=== PATIENT | female | born 1990 ===

== ENCOUNTER 2017-01-12 15:53 | Emergency (ER) | payer BC ==
[2017-01-12 17:04] VITALS: BP 130/82
--- NOTE | 2017-01-12 17:10 | UC ---
General HPI - HPI Summary HPI Summary: . 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 Negative: Abdominal Pain, Diarrhea, Dysuria, SOB - Allergy/Home Medications Allergies/Adverse Reactions: Allergies Allergy/AdvReac Type Severity Reaction Status Date / Time No Known Allergies Allergy Verified 01/12/17 16:57 Home Medications: Home Medications Ibuprofen TAB* [Advil TAB*] 400 mg PO Q6H PRN 01/12/17 [History Confirmed ] PMH/Surg Hx/FS Hx/Imm Hx Previously Healthy: Yes Respiratory History Of: Reports: Asthma - mild exercise induced - Surgical History Surgical History: Yes Surgery Procedure, Year, and Place: Cholecystectomy, 2010, [place] - Social History Occupation: Employed Full-time Lives: With Family Alcohol Use: None Substance Use Type: None Smoking Status (MU): Never Smoked Tobacco Have You Smoked in the Last Year: No - Immunization History Most Recent Influenza Vaccination: July 2016 Hx Tetanus, Diphtheria Vaccination: Yes Vaccination Up to Date: Yes Review of Systems Constitutional: Fever, Chills, Fatigue Skin: Negative Eyes: Negative ENT: Other - ear pressure b/l Respiratory: Cough - nonproductive Cardiovascular: Negative Gastrointestinal: Abdominal Pain Genitourinary: Negative Motor: Negative Neurovascular: Negative Musculoskeletal: Negative Neurological: Headache Psychological: Negative All Other Systems Reviewed And Are Negative: Yes Physical Exam Triage Information Reviewed: Yes Appearance: No Pain Distress, Well-Nourished, Ill-Appearing - mildly ill appearing Vital Signs: Initial Vital Signs Temp 99.2 F 01/12/17 16:54 Pulse 126 01/12/17 16:54 Resp 16 01/12/17 16:54 BP 130/82 01/12/17 16:54 Pulse Ox 98 01/12/17 16:54 Vital Signs Reviewed: Yes Eyes: Positive: Conjunctiva Clear ENT: Positive: Pharyngeal erythema, Nasal congestion, TMs normal Neck: Positive: Supple, Nontender, No Lymphadenopathy. Negative: Nuchal Rigidity Respiratory: Positive: Chest non-tender, Lungs clear, Normal breath sounds, No respiratory distress, No accessory muscle use. Negative: Crackles, Rhonchi, Stridor, Wheezing Cardiovascular: Positive: RRR, No Murmur, Pulses Normal, Brisk Capillary Refill , Tachycardia Abdomen Description: Positive: Nontender, Soft. Negative: CVA Tenderness (R), Distended, Peritoneal Signs Bowel Sounds: Positive: Present Musculoskeletal: Positive: Strength Intact, ROM Intact, No Edema Neurological: Positive: Alert Psychological Exam: Normal Diagnostics - Laboratory Diagnostic Studies Completed/Ordered: chest xray - normal exam Course/Dx - Differential Dx - Multi-Symptom Provider Diagnoses: 1. Viral Illness Discharge - Discharge Plan Condition: Stable Disposition: HOME Patient Education Materials: Viral Syndrome (ED) Referrals: Iveth Ash MD [Primary Care Provider] - (follow up in 2-3 days) Additional Instructions: Your influenza A/B and Rapid Strep are negative. It appears you have a viral illness. Rest, stay well hydrated. INCREASE YOUR WATER INTAKE. If you have any worsening or concerning symptoms return or go to the emergency department.
--- NOTE | 2017-01-12 18:13 | RAD ---
INDICATION: Cough and fever COMPARISON: None TECHNIQUE: PA and lateral dual-energy views were obtained. FINDINGS: Bones/Soft Tissues: There are no acute bony findings. Cardiomediastinal: The cardiomediastinal silhouette is normal. Lungs: There are no infiltrates. Pleura: There are no pleural effusions. Other: None IMPRESSION: NORMAL CHEST.
== END 2017-01-12 18:25 | disposition home or self-care (01) ==
LOC: UCCORT 15:53
DX: B34.9 Viral infection, unspecified (principal); Z90.49 Acquired absence of other specified parts of digestive tract
CPT/HCPCS: 71020; 87502; 87651; 99201; G0463